=== PATIENT | female | born 1970 | race Caucasian/White ===

== ENCOUNTER 2023-12-17 19:09 | Emergency (ER) | payer BC, SELFPAY ==
[2023-12-17 19:11] VITALS: BP 167/84; PULSE 107; RESP 16; TEMP 36.7; O2SAT 99; BMI 36.6
--- NOTE | 2023-12-17 19:42 | ED_ITS ---
Discharge Plan Disposition Patient Disposition: Home, Self-Care Condition: Good Prescriptions Prescriptions: No Action lisinopril 10 mg tablet 10 mg PO DAILY Patient Comments: TAKE 1 TABLET BY MOUTH ONCE DAILY aspirin 81 mg Tablet 81 mg PO WEEKLY Rx Instructions: 2 times per week Referrals Follow up/Referrals: Provider,Referral, [Primary Care Provider] - See instructions Activity Restrictions/Add. Instructions Additional Instructions/Restrictions: You were evaluated in the emergency department today. Please follow-up closely with your primary care provider for reassessment. Return to the emergency department for new or worsening symptoms, such as chest pain, shortness of pennie th, leg swelling, or significant worsening of pain. Clinical Impressions Clinical Impression: Acute pain of right thigh Instructions Patient Instructions: DI for Muscle Strain Discharge ED Provider: Liza Conroy General Adult HPI General Chief complaint: Extremity Injury, Lower Stated complaint: right leg pain, swollen inner thigh Time Seen by Provider: 12/17/23 19:21 Mode of Arrival: Ambulatory Source of Information: Patient Limitations: No Limitations Description of Symptoms (Recalled from ER Triage Doc. by RN): pt c/o of rt inner thigh swelling and painful to touch. pt denies any trauma or redness. History of Present Illness HPI narrative: This patient is a 53-year-old female who denies significant past medical history presenting to the emergency department for evaluation with concern for pain on the inside of her right thigh. States that it has been going on for a few days. She states that it is very tender to the touch. She denies any significant sk in color changes or bruising. She states that she had a friend of a blood clot so she became concerned. She denies any history of blood clots or clotting disorders. She states that the pain occasionally will radiate down her right leg, but she denies any significant skin color changes, Swelling, or other issues. She does not use any hormonal medications. She denies any recent travel or surgeries. No known trauma, fevers, chills, or other concerns. Related Data Home Medications Medication Instructions Recorded Confirmed aspirin 81 mg tablet 81 mg PO WEEKLY 12/17/23 12/17/23 lisinopril 10 mg tablet 10 mg PO DAILY 12/17/23 12/17/23 Allergies Allergy/AdvReac Type Severity Reaction Status Date / Time No Known Allergies Allergy Verified 12/17/23 19:43 [facility] Disclaimer: The information contained in this section may have been updated after the patient was seen, as this information can be updated by other users. Social History Smoking Status: Current every day smoker alcohol intake: never current occupational status: employed Travel in the last 8 weeks: None ROS Obtained: Yes All systems reviewed & no additional complaints except as documented Physical Exam General General appearance: alert and in no apparent distress Head Head exam: atraumatic and normocephalic Eye Eye exam: Present normal appearance, PERRL and EOMI ENT ENT exam: Present normal exam, normal oropharynx, mucous membranes moist and normal external ear exam Neck Neck exam: Present normal inspection, full ROM and trachea midline; Absent tenderness Chest Chest inspection: Present normal inspection and symmetric chest wall rise; Absent tenderness Respiratory Respiratory exam: Present normal lung sounds bilaterally; Absent respiratory distress, wheezes, stridor or accessory muscle use Cardiovascular Cardiovascular exam: Present regular rate and normal rhythm Abdominal Exam Abdominal exam: Present soft; Absent distention, tenderness or guarding Extremities Exam Extremities exam: Present full ROM, tenderness (R inner thigh) and normal capillary refill; Absent edema or calf tenderness Back Exam Back exam: Present normal inspection and full ROM; Absent tenderness Neurological Exam Neurological exam: Present alert, oriented X3, CN II-XII intact and normal gait; Absent motor sensory deficit Psychiatric Psychiatric exam: Present normal affect and normal mood Skin Skin exam: Present warm and dry Medical Decision Making Medical Records Medical records reviewed: Yes I reviewed the patient's medical records. [place] Inquiry Pt receiving controlled substance: No Vital Signs: 12/17/23 19:11 12/17/23 20:00 12/17/23 20:30 Temperature 98.0 F Temperature Source Oral Pulse Rate 101 H 103 H Pulse Rate [Right] 107 H Respiratory Rate 16 Blood Pressure 149/80 H 147/88 H Blood Pressure [Right Arm] 167/84 H Blood Pressure Mean Blood Pressure Mean [Right Arm] 111 Blood Pressure Source Blood Pressure Position 02 Sat by Pulse Oximetry 99 97 94 L Oxygen Delivery Method 12/17/23 21:00 12/17/23 21:30 12/17/23 22:22 Temperature 98.3 F Temperature Source Oral Pulse Rate 94 H 85 86 Pulse Rate [Right] Respiratory Rate 18 18 Blood Pressure 131/81 124/62 144/84 H Blood Pressure [Right Arm] Blood Pressure Mean 82 Blood Pressure Mean [Right Arm] Blood Pressure Source Automatic Cuff Blood Pressure Position Sitting 02 Sat by Pulse Oximetry 94 L 95 Oxygen Delivery Method Room Air Room Air Lab Data Lab results reviewed: Yes I reviewed the patient's lab results. Lab Results 12/17/23 20:43: WBC 10.9 H, RBC 4.78, Hgb 14.6, Hct 43.2, MCV 90.4, MCH 30.7, MCHC 33.9, RDW 13.9, Plt Count 274, MPV 8.8, Neut % (Auto) 74.4, Lymph % (Auto) 19.6, Barron % (Auto) 3.2, Eos % (Auto) 1.6, Baso % (Auto) 1.2, Neut # (Auto) 8.1 H, Lymph # (Auto) 2.1, Barron # (Auto) 0.4, Eos # (Auto) 0.2, Baso # (Auto) 0.1, D-Dimer 0.52 H, Sodium 139, Potassium 3.4 L, Chloride 105, Carbon Dioxide 29, Anion Gap 8.4, BUN 12, Creatinine 0.80, Estimated Creat Clear 131, Estimated GFR 76, Est GFR ( Amer) 92, Glucose 125 H, Calcium 9.1, Total Bilirubin 0.3, AST 41 H, ALT 46, Alkaline Phosphatase 98, Total Protein 7.3, Albumin 4.1, Globulin 3.2, Albumin/Globulin Ratio 1.3 12/17/23 20:43 12/17/23 20:43 Orders (Tests/Meds): ORDERS Category Date Time Status POCUS Point of Care (ER Only) Stat Exams 12/17/23 19:32 Taken Complete Blood Count Auto Diff Stat Lab 12/17/23 20:43 Completed Comprehensive Metabolic Panel Stat Lab 12/17/23 20:43 Completed D-Dimer Stat Lab 12/17/23 20:43 Completed Medical Decision Narrative: In summary, this patient is a 53-year-old female presenting to the Emergency Department for evaluation of right inner thigh pain and tenderness. Differential diagnoses considered include but are not limited to DVT, cellulitis, contusion, musculoskeletal strain/sprain. Ruling out the most morbid conditions drove assessment. On exam, the patient is well-appearing without significant skin color changes. She is neurovascularly intact distally. Workup included CBC, CMP, D-dimer, and bedside ultrasound. Ultrasound demonstrated compressible veins in the right lower extremity without evidence concerning for DVT. D-dimer is 0.52. Per the patient's age-adjusted D-dimer, 0.51 is normal. I also do not feel that DVT is likely given that she does not have clinical exam findings suggestive of DVT, so per years criteria D-dimer is negative. Once patient saw bedside ultrasound that was reassuring and did not demonstrate any clot, she was reassured of all and feels comfortable with discharge with outpatient follow-up. She notes that she has chronic low back pain with radiculopathy, so it is possible this is referred pain from her back/lumbar radiculopathy. I advised her to try taking [id number] medications at home and follow-up closely with her primary care provider. She was given very strict return precautions and was discharged in stable condition after all questions were answered. Procedures Limited Ultrasound Views:: Limited DVT ultrasound Indication: Limited compression ultrasonography of the right lower extremity was performed to evaluate for non-compressibility of the deep veins in the patient. The ultrasound was performed with the following indications, as noted in the H&P: Right leg pain Identified structures: Right [common femoral vein, femoral vein, popliteal vein were examined.] Findings: Lower Extremity: Right CFV: Good compressibility Right FV: Good compressibility Right Popliteal vein: Good compressibility Impression: Normal right lower extremity DVT ultrasound without evidence of DVT Images were saved to permanent archive The study was technically adequate CPT: 01986-28-UJ This study was performed by me, and I personally interpreted all images/videos. Based on my clinical judgement, these images were adequate and did not necessitate further imaging. Critical Care Critical Care Time Critical Care Time: No
[2023-12-17 20:00] VITALS: BP 149/80; PULSE 101; O2SAT 97
[2023-12-17 20:30] VITALS: BP 147/88; PULSE 103; O2SAT 94
[2023-12-17 20:52] LABS: Basophils # 0.1 K/mm3 (0-0.2); Basophils % 1.2 % (0.1-2.0); Eosinophils # 0.2 K/mm3 (0.0-0.4); Eosinophils % 1.6 % (0.1-12.0); Hematocrit 43.2 % (37.0-47.0); Hemoglobin 14.6 g/dL (12.2-16.2); Lymphocytes # 2.1 K/mm3 (0.7-4.5); Lymphocytes % 19.6 % (10-50); Mean Corpuscular HGB Conc 33.9 g/dL (31.8-35.4); Mean Corpuscular Hemoglobin 30.7 pg (27.0-31.2); Mean Corpuscular Volume 90.4 fl (81-99); Mean Platelet Volume 8.8 fl (7.4-10.4); Monocytes # 0.4 K/mm3 (0.1-1.0); Monocytes % 3.2 % (1.7-9.3); Neutrophils # 8.1 K/mm3 (1.8-7.8); Neutrophils % 74.4 % (37.0-80.0); Platelet Count 274 K/mm3 (142-424); Red Blood Count 4.78 M/mm3 (4.20-5.40); Red Cell Distribution Width 13.9 % (11.5-17.5); White Blood Count 10.9 K/mm3 (4.8-10.8)
[2023-12-17 21:00] VITALS: BP 131/81; PULSE 94; O2SAT 94
[2023-12-17 21:30] VITALS: BP 124/62; PULSE 85; RESP 18; O2SAT 95
[2023-12-17 21:46] LABS: Alanine Aminotransferase 46 U/L (12-78); Albumin Level 4.1 g/dl (3.5-5.0); Albumin/Globulin Ratio 1.3 (1.1-1.8); Alkaline Phosphatase 98 U/L (38-126); Anion Gap 8.4 mEq/L (5-15); Aspartate Amino Transferase 41 U/L (14-36); Bilirubin,Total 0.3 mg/dl (0.2-1.3); Blood Urea Nitrogen 12 mg/dl (7-17); Calcium 9.1 mg/dl (8.4-10.2); Carbon Dioxide 29 mmol/L (22.0-30.0); Chloride 105 mmol/L (98-107); Creatinine Clearance Estimated 131 mL/min (50-200); Estimated Glomerular Filt Rate 76 ml/min (>60); GFR (African American) 92 ML/MIN (>60); Globulin 3.2 g/dL (1.3-3.2); Glucose 125 mg/dl (74-100); Potassium 3.4 mmoL/L (3.5-5.1); Sodium 139 mmol/L (136-145); Total Protein,Serum 7.3 g/dl (6.3-8.2)
[2023-12-17 22:11] LABS: D-Dimer 0.52 ug/mL (0.0-0.5)
[2023-12-17 22:22] VITALS: BP 144/84; PULSE 86; RESP 18; TEMP 36.8; O2SAT 96
== END 2023-12-17 22:24 | disposition home or self-care (01) ==
PROVIDERS: Emergency Provider Emergency Medicine
DX: M79.651 Pain in right thigh (principal); R22.41 Localized swelling, mass and lump, right lower limb; F17.200 Nicotine dependence, unspecified, uncomplicated; M54.16 Radiculopathy, lumbar region
CPT/HCPCS: 80053; 85025; 85378; 99285

== ENCOUNTER 2024-07-07 20:05 | Emergency (ER) | payer BC, SELFPAY ==
[2024-07-07] VITALS (8 sets, daily range): BP systolic 125–221; BP diastolic 63–123; PULSE 75–119; RESP 12–18; TEMP 36.6–36.7; O2SAT 95–100; BMI 37.8
--- NOTE | 2024-07-07 20:00 | ECG_ITS ---
APPROVED REPORT Exam: Resting ECG HR:115 bpm ECG Measurements Heart Rate 115 AXES SD 150 P 53 QRSd 82 QRS 85 QT 311 T -10 QTc 379 Conclusion Sinus tachycardia Nearly diffuse ST and T wave changes without elevations Electronically signed by : TURNER HICKS, 07/07/2024 21:29:28
--- NOTE | 2024-07-07 20:26 | [facility].EDCP ---
Discharge Plan Disposition Patient Disposition: Home, Self-Care Chief Complaint: Chest Pain Prescriptions Prescriptions: No Action lisinopril 10 mg tablet 10 mg PO DAILY Patient Comments: TAKE 1 TABLET BY MOUTH ONCE DAILY aspirin 81 mg Tablet 81 mg PO WEEKLY Rx Instructions: 2 times per week Referrals Follow up/Referrals: Provider,Referral, MD [Referring] - See instructions Activity Restrictions/Add. Instructions Additional Instructions/Restrictions: Call your family doctor to establish care for this visit to the emergency department and schedule follow-up within 48 hours to ensure improvement. If you have any worsening of your condition or any other concerning signs or symptoms, return to the emergency department or your primary care doctor for further evaluation. Follow-up with your vitreo retinal surgeon as discussed Clinical Impressions Clinical Impression: Chest pain, Acute pain of left shoulder Print Language Print Language: Belarusian Discharge ED Provider: John Rockwell General Chief Complaint: Chest Pain Stated Complaint: cp Time Seen by Provider: 07/07/24 20:25 Mode of Arrival: Wheelchair Source of Information: Patient Limitations: No Limitations Description of Symptoms (Recalled from ER Triage Doc. by RN): Pt reports to ED with cc of chest pain. Pt states the chest pain started approx 1200 today. Pt states the chest pain radiates to her back, left shoulder blade, and left arm. Pt states having dizziness and nausea yesterday. Pt states having a history of HTN and did not take her lisinopril History of Present Illness HPI narrative: Please note that above description of symptoms, in this electronic medical record under categorization of recalled from ER triage doctor by RN are reflective of an initial nursing assessment, however, is not reflective of my full history and physical exam that was personally taken and clarified. Consequentially, this preceding description of symptoms, which may include the patient's categorized chief complaint in the EMR, do not reflect my personal clinical impression, and the ultimate description of history of present illness and patient stated complaints should be deferred to this section of the note. Unless stated otherwise or congruent with this section of the note, additional signs, symptoms, or incongruence should be interpreted as inaccurate with my clinical impression. Related Data Home Medications ?Medication ?Instructions ?Recorded ?Confirmed aspirin 81 mg tablet 81 mg PO WEEKLY 12/17/23 12/17/23 lisinopril 10 mg tablet 10 mg PO DAILY 12/17/23 12/17/23 Allergies Allergy/AdvReac Type Severity Reaction Status Date / Time No Known Allergies Allergy Verified 12/17/23 19:43 [facility] Disclaimer: The information contained in this section may have been updated after the patient was seen, as this information can be updated by other users. Social History (Updated 12/17/23 @ 22:47 by Liza Conroy DO) Smoking Status: Current every day smoker alcohol intake: never current occupational status: employed Travel in the last 8 weeks: None ROS Obtained: Yes All systems reviewed & no additional complaints except as documented Physical Exam General General appearance: alert and anxious Neck Neck exam: Present trachea midline Chest Chest inspection: Present normal inspection and symmetric chest wall rise Respiratory Respiratory exam: Present normal lung sounds bilaterally; Absent respiratory distress, wheezes, stridor, accessory muscle use or prolonged expiratory phase Cardiovascular Cardiovascular exam: Present normal rhythm, tachycardia and other (Pulses equal and symmetric in upper and lower extremities) Extremities Exam Extremities exam: Absent edema Neurological Exam Neurological exam: Present alert, oriented X3, CN II-XII intact and normal gait; Absent motor sensory deficit Skin Skin exam: Present warm and dry; Absent cyanosi
--- NOTE | 2024-07-07 20:27 | XR_ITS ---
PROCEDURE INFORMATION: Exam: XR Chest Exam date and time: 07/07/2024 8:41 PM Age: 53 years old Clinical indication: Other: Chest pain with left shoulder pain; Additional info: SOA cp palpitations TECHNIQUE: Imaging protocol: Radiologic exam of the chest. Views: 1 view. Total images: 1 COMPARISON: No relevant prior studies available. FINDINGS: Lungs: Unremarkable. No consolidation. No pulmonary vascular congestion or edema. Pleural spaces: Unremarkable. No pleural effusion. No pneumothorax. Heart/Mediastinum: Unremarkable. No cardiomegaly. No mediastinal widening or hilar enlargement. Bones/joints: Unremarkable. IMPRESSION: No radiographically acute cardiopulmonary process.
[2024-07-07 20:46] LABS: Basophils # 0.1 K/mm3 (0-0.2); Basophils % 1.2 % (0.1-2.0); Eosinophils # 0.2 K/mm3 (0.0-0.4); Eosinophils % 1.9 % (0.1-12.0); Hematocrit 46.6 % (37.0-47.0); Lymphocytes # 2.9 K/mm3 (0.7-4.5); Lymphocytes % 28.8 % (10-50); Mean Corpuscular HGB Conc 32.2 g/dL (31.8-35.4); Mean Corpuscular Hemoglobin 30.3 pg (27.0-31.2); Mean Platelet Volume 9.1 fl (7.4-10.4); Monocytes # 0.5 K/mm3 (0.1-1.0); Neutrophils # 6.4 K/mm3 (1.8-7.8); Neutrophils % 63.2 % (37.0-80.0); Platelet Count 266 K/mm3 (142-424); Red Blood Count 4.95 M/mm3 (4.20-5.40); White Blood Count 10.1 K/mm3 (4.8-10.8)
[2024-07-07 21:07] LABS: Alanine Aminotransferase 51 U/L (12-78); Albumin Level 4.1 g/dl (3.5-5.0); Albumin/Globulin Ratio 1.1 (1.1-1.8); Alkaline Phosphatase 136 U/L (38-126); Anion Gap 9.3 mEq/L (5-15); Aspartate Amino Transferase 44 U/L (14-36); Bilirubin,Total 0.4 mg/dl (0.2-1.3); Blood Urea Nitrogen 14 mg/dl (7-17); Calcium 9.1 mg/dl (8.4-10.2); Carbon Dioxide 28 mmol/L (22.0-30.0); Chloride 108 mmol/L (98-107); Creatinine Clearance Estimated 175 mL/min (50-200); Estimated Glomerular Filt Rate 105 ml/min (>60); GFR (African American) 128 ML/MIN (>60); Globulin 3.6 g/dL (1.3-3.2); Glucose 132 mg/dl (74-100); Magnesium 1.8 mg/dl (1.6-2.3); Potassium 3.3 mmoL/L (3.5-5.1); Sodium 142 mmol/L (136-145); Total Protein,Serum 7.7 g/dl (6.3-8.2)
[2024-07-07 21:12] LABS: D-Dimer 0.35 ug/mL (0.0-0.5)
[2024-07-07 21:21] LABS: NT Pro Brain Natriuretic Pep. 75.7 pg/mL (0-125)
[2024-07-07 21:28] LABS: Troponin I < 0.01 ng/ml (0.00-0.034)
--- NOTE | 2024-07-07 21:55 | PC.NURSE ---
spoke with octaviano schaefer,kaden who stated he would contact [facility] and have them call us. [facility] called ED and conversed with MD. New orders noted.
== END 2024-07-07 23:06 | disposition home or self-care (01) ==
PROVIDERS: Emergency Provider Emergency Medicine; PCP Nurse Practitioner Family
DX: R07.9 Chest pain, unspecified (principal); M25.512 Pain in left shoulder; E87.6 Hypokalemia; R00.0 Tachycardia, unspecified; I10 Essential (primary) hypertension
CPT/HCPCS: 71045; 80053; 83735; 83880; 84484; 85025; 85378; 93005; 96361; 96374; 99284; J1885; J7120